=== PATIENT | female | born 1975 | race Caucasian/White ===

== ENCOUNTER 2024-03-08 08:00 | Outpatient (RCR) | payer BC, OTHER, SELFPAY ==
--- NOTE | 2023-12-17 12:02 | OTOPEVAL1 ---
Assessment and note entered by Shivam Samayoa, LON/Anuj, CHT Evaluation Information Assessment Status Evaluation Diagnosis Pain in right hand Subjective Information Patient has a history of chronic pain in the right wrist/thumb. She has had therapy in the past and has a long thumb spica splint that she wears at night when she has flair ups . She received a cortisone injection to the 1st dorsal compartment 3 weeks ago. She reports she has been feeling better since the injection. She reports her hand feels very weak. She states she is unable to open a jar or a water bottle with the right hand. She has not been able to push a grocery cart or carry groceries into her house. Reported Pain Level Pain Score 0: Self Report Additional Pain Score Comments Pain increases to 2/10 with active ROM. Assessment OT Clinical Summary Patient referred to OT with right wrist pain. She was actually a patient here ~8 years ago with the same complaints. She has modified a lot of her life around not using this hand/wrist and does a lot with her left hand now. She recently started a new job and the pain flared up to a point she could no longer manage. She received a cortisone injection ~3 weeks ago and this has helped. She presents today very guarded with wrist and thumb motion. She avoids using this hand. Skilled OT indicated for splinting, modalities, manual therapy, and HEP instruction to facilitate reduced pain and improved functional strength of the right UE. Plan of Care Interventions Therapeutic Exercise,Manual Therapy,Therapeutic Activities,Hot Pack/Cold Pack,Check Out for Orthotic/Pr,Ultrasound,Paraffin OT Services Indicated Yes Treatment Frequency and 1x/week for 6 visits Duration These treatments will address the objective and functional deficits as defined above. The patient will be advanced safely and appropriately in order for the patient to progress towards his/her prior level of function. Additional exercises will be introduced and as well as a comprehensive home exercise program upon discharge, if needed, ?to ensure carryover of functional gains achieved in the clinic. This treatment plan has been reviewed and agreement upon by the patient.
--- NOTE | 2024-02-28 12:09 | OTOPPROG ---
Assessment and note entered by Shivam Samayoa, LON/Anuj, CHT Evaluation Information Assessment Status Progress Diagnosis Pain in right hand Subjective Information Patient reports her pain increased after the cortisone injection wore off, but overall therapy has brought her pain back down. Reports regular wrist pain at 2/10. She continues to report being unable to open a jar or a water bottle with the right hand. She has not been able to push a grocery cart or carry groceries into her house. She reports she continues to be very guarded with using the right UE, if she does too much she will be off work for a week due to the pain . Assessment OT Clinical Summary Patient referred to OT with right wrist pain. She was actually a patient here ~8 years ago with the same complaints. She has modified a lot of her life around not using this hand/wrist and does a lot with her left hand now. She continues to be extremely guarded with right hand use due to expecting increased pain. She presents today with improved flexibility of the wrist. She was able to tolerate some light strengthening today also. Continued skilled OT indicated for progressive strengthening, splinting, modalities, manual therapy, and HEP instruction to facilitate reduced pain and improved functional strength of the right UE. Plan of Care Interventions Therapeutic Exercise,Manual Therapy,Therapeutic Activities,Hot Pack/Cold Pack,Check Out for Orthotic/Pr,Ultrasound,Paraffin OT Services Indicated Yes Treatment Frequency and 1-2x/week for 8 visits Duration These treatments will address the objective and functional deficits as defined above. The patient will be advanced safely and appropriately in order for the patient to progress towards his/her prior level of function. Additional exercises will be introduced and as well as a comprehensive home exercise program upon discharge, if needed, ?to ensure carryover of functional gains achieved in the clinic. This treatment plan has been reviewed and agreement upon by the patient.
--- NOTE | 2024-02-28 12:09 | OPREHPOC ---
Outpatient Therapy Plan of Care This is a Multidisciplinary Plan of Care that may contain components documented by all disciplines (PT, OT, and ST.) OT Problem 1 OT Problem #1 Knowledge Deficit OT Goal 1 Goal 1. Patient to be independent with instructed materials. ---OT POC UPDATE 02/28/24--- 1. Met, continue as HEP is progressed Target Visit 15 OT Problem 2 OT Problem #2 Pain OT Goal 1 Goal 1. Patient to report no pain with wrist/thumb ROM through full ROM. ---OT POC UPDATE 02/28/24--- 1. Not met, continue Target Visit 15 OT Problem 3 OT Problem #3 Impaired Strength OT Goal 1 Goal 1. Patient to be able to complete wrist strengthening with 1 lb. free weight in all planes x10 reps. ---OT POC UPDATE 02/28/24--- 1. Completes flexion/extension, unable to complete RD; Continue Target Visit 15
--- NOTE | 2024-03-03 08:23 | PCOTNOTE ---
Patient called & cancelled scheduled appointment this date due to getting called into work.
== END 2024-03-14 11:07 | disposition home or self-care (01) ==
LOC: ANHOT 08:00
PROVIDERS: PCP Physician Assistant Medical
DX: M79.641 Pain in right hand (principal)
CPT/HCPCS: 97018; 97035; 97110; 97165

== ENCOUNTER 2024-03-23 07:30 | Outpatient (RCR) | payer OTHER, SELFPAY ==
--- NOTE | 2024-01-26 16:29 | OPREHPOC ---
Outpatient Therapy Plan of Care This is a Multidisciplinary Plan of Care that may contain components documented by all disciplines (PT, OT, and ST.) PT Problem 1 PT Problem #1 Knowledge Deficit PT Goal 1 Goal *indep with HEP PT Problem 2 PT Problem #2 Pain PT Goal 1 Goal 1* pt report pain at worst rating of 1/10 2* pt report able to walk into her office at work without pain increase 3* pt report up/down stairs without an increase in pain 4* self assessment LE functional scale rating of 25% limitation in activity PT Problem 3 PT Problem #3 Impaired Strength PT Goal 1 Goal increase strength of R hip and knee, to improve stability to knee joint and improve mobility 1* single leg standing x 30 seconds with good stability 2* 20 reps of mat and standing strengthening exercises
--- NOTE | 2024-01-26 16:29 | PTOPEVAL1 ---
Assessment and note entered by Niecy Lo, PT Evaluation Information Assessment Status Evaluation Diagnosis R knee pain Onset about one month ago Subjective Information gradual increase in knee pain, no injury or trauma to leg; started new job at [employer] and walking more on hills to get to office; having more issues with irritable bowel--loss of weight, and muscle mass, not as active; played tennis in the past and very active, but this is her first incident of knee pain; have not had imaging of knee; knee swelling and pain have decreased, but resting and not doing much; Activity: due to pain, avoids stairs; is paying to park closer to her office to avoid walking on the hills and 5 minute distance; Reported Pain Level Pain Score Self Report Additional Pain Score Comments pain range in the past week 0-3/10; medial knee joint line; swelling more over lateral knee; increase pain: walk uneven surface, stairs, decrease pain: rest, ice not able to take meds due to stomach issues sleeping is OK; walking on flat surface is OK- better than was but still knee feels unstable; Assessment PT Clinical Summary Ann has the diagnosis of R knee pain. She reports gradual onset of pain with increased walking of distance and hills to reach her office at [facility]. The pain is less and still have some swelling. Self assessment with LE functional scale of 54% limitation in activity. With the evaluation: R knee ROM is WNL and does not report pain with active motion or palpation over knee; testing negative for meniscus tear; decreased strength of hips and knees bilateral. Skilled PT services are indicated to increase LE strength and stabilization to knee; modalities PRN for pain and edema, with education for HEP. Plan of Care Interventions Electrical Stimulation,Hot Pack/Cold Pack, Intermittent Compression,Manual Therapy,Neuro Re- education,Patient Education,Therapeutic Activities,Therapeutic Exercise,Ultrasound,Other Other Interventions taping
--- NOTE | 2024-03-22 08:27 | PCPTNOTE ---
Mrs. Link contacted the clinic this morning stating that she was stuck in traffic and would be unable to make her scheduled appointment. She reschudled her appointment for this week. Cale Palma, MPT
--- NOTE | 2024-03-23 08:33 | PTOPDC ---
Assessment and note entered by Cale Palma Evaluation Information Assessment Status Discharge Diagnosis R knee pain Onset about one month ago Subjective Information Pt. reports that she was doing well, but recently went to [employer] and re-aggravated the knee after doing a large amount of steps. She continues to describe her pain on the inside of the right knee. She states that she is comfortable on level surfaces, but notices pain with inclines and steps. She reports she will attempt to be more compliant with her HEP and continue to address pain through exercise. Reported Pain Level Pain Score 1: Self Report Assessment PT Clinical Summary Pt. continues to provide reports of mild pain. She does demonstrate significant improvement in regards to strength, ROM, gait mechanics and LEFS scoring despite pain. At this time encourage the pt. to continue with her HEP and she will be discharged from our care. Plan of Care PT Services Indicated No
== END 2024-03-23 09:06 | disposition home or self-care (01) ==
LOC: ANHPT 07:30
PROVIDERS: PCP Physician Assistant Medical; Visit Provider Physician Assistant Medical
DX: M25.561 Pain in right knee (principal)
CPT/HCPCS: 97110; 97161; 97530

== ENCOUNTER 2024-06-05 11:15 | Outpatient (RCR) | payer OTHER, SELFPAY ==
--- NOTE | 2024-04-06 11:59 | OTOPPROG ---
Assessment and note entered by Shivam Samayoa, LON/Anuj, CHT Progress Update 04/06/24 Assessment Status Progress Diagnosis (R) de Quervain's tenosynovitis Subjective Information Patient reports she has noticed progress in the right wrist over the past month. She reports experiencing less pain and inflammation, which has allowed her to be able to use her right hand more normally. She reports she has been able to type without compensating. She continues to report being unable to open a jar or a water bottle with the right hand. She has not been able to push a grocery cart or carry groceries into her house. She reports she continues to be very guarded with using the right UE, if she does too much she will be off work for a week due to the pain. Assessment OT Clinical Summary Patient referred to OT with right wrist pain dx with de Quervain's tenosynovitis. She presents today for therapy re-eval. She demonstrates improvements with reduced pain and improved flexibility. We have been able to complete some light strengthening also. Overall she continues to demonstrate severe weakness and is very limited with functional use due to pain and fear of pain if she over does it . She continues to be extremely guarded with right hand use due to expecting increased pain. Continued skilled OT indicated for progressive strengthening, splinting , modalities, manual therapy, and HEP instruction to facilitate reduced pain and improved functional strength of the right UE. Plan of Care Interventions Therapeutic Exercise,Check Out for Orthotic/Pr, Ultrasound,Paraffin,Manual Therapy,Therapeutic Activities,Hot Pack/Cold Pack OT Services Indicated Yes Treatment Frequency and 1x/week for 6 visits Duration These treatments will address the objective and functional deficits as defined above. The patient will be advanced safely and appropriately in order for the patient to progress towards his/her prior level of function. Additional exercises will be introduced and as well as a comprehensive home exercise program upon discharge, if needed, ?to ensure carryover of functional gains achieved in the clinic. This treatment plan has been reviewed and agreement upon by the patient.
--- NOTE | 2024-04-06 11:59 | OPREHPOC ---
Outpatient Therapy Plan of Care This is a Multidisciplinary Plan of Care that may contain components documented by all disciplines (PT, OT, and ST.) OT Problem 1 OT Problem #1 Knowledge Deficit OT Goal 1 Goal 1. Patient to be independent with instructed materials. ---OT POC UPDATE 02/28/24--- 1. Met, continue as HEP is progressed ---OT POC UPDATE 04/06/24--- 1. Met Target Visit 18 OT Problem 2 OT Problem #2 Pain OT Goal 1 Goal 1. Patient to report no pain with wrist/thumb ROM through full ROM. ---OT POC UPDATE 02/28/24--- 1. Not met, continue ---OT POC UPDATE 04/06/24--- 1. Patient reporting no pain, just tightness with ROM today, continue to treat pain and inflammation Target Visit 18 OT Problem 3 OT Problem #3 Impaired Strength OT Goal 1 Goal 1. Patient to be able to complete wrist strengthening with 1 lb. free weight in all planes x10 reps. ---OT POC UPDATE 02/28/24--- 1. Completes flexion/extension, unable to complete RD; Continue ---OT POC UPDATE 04/06/24--- 1. Progressing, continue NEW GOAL 2. Patient to increase right hand scudder strength to 43 lbs. Target Visit 18
--- NOTE | 2024-06-05 12:03 | OTOPPROG ---
Assessment and note entered by Shivam Samayoa, OTR/L, CHT Evaluation Information Assessment Status Progress Diagnosis (R) de Quervain's tenosynovitis Subjective Information Patient reports she is slowly getting back into cooking and dishes, but continues to be guarded and careful with movement during these tasks. She reports some residual soreness from cooking last night. She was able to open a bottle of water with the right hand. She feels as though therapy helps keep her pain and inflammation low enough to where she can use her hand for light tasks. She states she can tell when there has been a gap between her therapy sessions. She continues to feel like if she does too much with her hand/wrist she will be unable to use the hand for a few days due to the pain. Assessment OT Clinical Summary Patient referred to OT with right wrist pain dx with de Quervain's tenosynovitis. She presents today for therapy re-eval. She demonstrates improvements with reduced pain, improved flexibility, and improved strength. She has been able to use her hand for more functional ADL tasks . Overall she continues to demonstrate severe weakness and is very limited with functional use due to pain and fear of pain if she over does it . She continues to be extremely guarded with right hand use due to expecting increased pain. Continued skilled OT indicated for progressive strengthening, splinting, modalities, manual therapy, and HEP instruction to facilitate reduced pain and improved functional strength of the right UE. Plan of Care Interventions Therapeutic Exercise,Check Out for Orthotic/Pr, Ultrasound,Paraffin,Manual Therapy,Therapeutic Activities,Hot Pack/Cold Pack OT Services Indicated Yes Treatment Frequency and 1x/week for 4 visits Duration These treatments will address the objective and functional deficits as defined above. The patient will be advanced safely and appropriately in order for the patient to progress towards his/her prior level of function. Additional exercises will be introduced and as well as a comprehensive home exercise program upon discharge, if needed, ?to ensure carryover of functional gains achieved in the clinic. This treatment plan has been reviewed and agreement upon by the patient.
--- NOTE | 2024-06-05 12:04 | OPREHPOC ---
Outpatient Therapy Plan of Care This is a Multidisciplinary Plan of Care that may contain components documented by all disciplines (PT, OT, and ST.) OT Problem 1 OT Problem #1 Knowledge Deficit OT Goal 1 Goal 1. Patient to be independent with instructed materials. ---OT POC UPDATE 02/28/24--- 1. Met, continue as HEP is progressed ---OT POC UPDATE 04/06/24--- 1. Met ---OT POC UPDATE 06/05/24--- 1. Met, continue as HEP is progressed Target Visit 22 OT Problem 2 OT Problem #2 Pain OT Goal 1 Goal 1. Patient to report no pain with wrist/thumb ROM through full ROM. ---OT POC UPDATE 02/28/24--- 1. Not met, continue ---OT POC UPDATE 04/06/24--- 1. Patient reporting no pain, just tightness with ROM today, continue to treat pain and inflammation ---OT POC UPDATE 06/05/24--- 1. No pain, just tightness with ROM today, UPGRADE : Patient to report no pain with opening water bottles and doing the dishes. Target Visit 22 OT Problem 3 OT Problem #3 Impaired Strength OT Goal 1 Goal 1. Patient to be able to complete wrist strengthening with 1 lb. free weight in all planes x10 reps. ---OT POC UPDATE 02/28/24--- 1. Completes flexion/extension, unable to complete RD; Continue ---OT POC UPDATE 04/06/24--- 1. Progressing, continue NEW GOAL 2. 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 ---OT POC UPDATE 06/05/24--- 1. Not met, continue 2. Progressing, not met, continue Target Visit 22
== END 2024-06-12 14:02 | disposition home or self-care (01) ==
LOC: ANHOT 11:15
PROVIDERS: PCP Physician Assistant Medical; Visit Provider Plastic Surgery
DX: M79.641 Pain in right hand (principal)
CPT/HCPCS: 97018; 97035; 97110

== ENCOUNTER 2024-09-11 11:15 | Outpatient (RCR) | payer OTHER, SELFPAY ==
--- NOTE | 2024-06-20 11:21 | PCOTNOTE ---
The treatment documented on this account is a continuation of the treatment documented on visit number [id number]. Please see documentation on both accounts to view progress. The Plan of Care has been transitioned and updated within the new V#. I have addressed and agree with the discipline specific Problems, Interventions, and Goals for the current certification period. Completed interventions, outcomes, and problems have been marked as Inactive to facilitate the copying of the Care plan routine for recurring accounts.
--- NOTE | 2024-07-17 12:06 | OTOPPROG ---
Assessment and note entered by Shivam Samayoa, OTR/Anuj, CHT OT Progress Update 07/17/24 Assessment Status Progress Diagnosis (R) de Quervain's tenosynovitis Subjective Information Patient reports she is slowly incorporating her right hand into more tasks and has been trying to be less guarded with use. She has been using her right hand to open water and juice bottles. She continues to experience wrist soreness after certain tasks, such as cooking. She reports that she is relying less on therapy to keep her pain and inflammation down and that she is getting longer relief between therapy sessions. Assessment OT Clinical Summary Patient referred to OT with right wrist pain dx with de Quervain's tenosynovitis. She presents today for therapy re-eval. She demonstrates improvements with reduced pain, improved flexibility, and improved strength. She has been able to use her hand for more functional ADL tasks . Overall she continues to demonstrate severe weakness and is very limited with functional use due to pain and fear of pain if she over does it . She is making progress with being less guarded and using her hand for more tasks. She is also finding more relief between sessions and we are going to schedule therapy every other week now to taper down. Continued skilled OT indicated for progressive strengthening, splinting, modalities, manual therapy, and HEP instruction to facilitate reduced pain and improved functional strength of the right UE. Plan of Care Interventions Therapeutic Exercise,Check Out for Orthotic/Pr, Ultrasound,Paraffin,Manual Therapy,Therapeutic Activities,Hot Pack/Cold Pack OT Services Indicated Yes Treatment Frequency and 1x/week for 4 visits Duration Scheduling every other week These treatments will address the objective and functional deficits as defined above. The patient will be advanced safely and appropriately in order for the patient to progress towards his/her prior level of function. Additional exercises will be introduced and as well as a comprehensive home exercise program upon discharge, if needed, ?to ensure carryover of functional gains achieved in the clinic. This treatment plan has been reviewed and agreement upon by the patient.
--- NOTE | 2024-07-17 12:06 | OPREHPOC ---
Outpatient Therapy Plan of Care This is a Multidisciplinary Plan of Care that may contain components documented by all disciplines (PT, OT, and ST.) OT Problem 1 OT Problem #1 Knowledge Deficit OT Goal 1 Goal / Goal Update 1. Patient to be independent with instructed materials. ---OT POC UPDATE 02/28/24--- 1. Met, continue as HEP is progressed ---OT POC UPDATE 04/06/24--- 1. Met ---OT POC UPDATE 06/05/24--- 1. Met, continue as HEP is progressed ---OT POC UPDATE 07/17/24--- 1. Met, continue as HEP is progressed Target Visit 25 OT Problem 2 OT Problem #2 Pain OT Goal 1 Goal / Goal Update 1. Patient to report no pain with wrist/thumb ROM through full ROM. ---OT POC UPDATE 02/28/24--- 1. Not met, continue ---OT POC UPDATE 04/06/24--- 1. Patient reporting no pain, just tightness with ROM today, continue to treat pain and inflammation ---OT POC UPDATE 06/05/24--- 1. No pain, just tightness with ROM today, UPGRADE : Patient to report no pain with opening water bottles and doing the dishes. ---OT POC UPDATE 07/17/24--- 1. Progressing, continue to treat and address pain Target Visit 25 OT Problem 3 OT Problem #3 Impaired Strength OT Goal 1 Goal / Goal Update 1. Patient to be able to complete wrist strengthening with 1 lb. free weight in all planes x10 reps. ---OT POC UPDATE 02/28/24--- 1. Completes flexion/extension, unable to complete RD; Continue ---OT POC UPDATE 04/06/24--- 1. Progressing, continue NEW GOAL 2. 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 ---OT POC UPDATE 06/05/24--- 1. Not met, continue 2. Progressing, not met, continue ---OT POC UPDATE 07/17/24--- 1. Progressing, continue 2. Prog
--- NOTE | 2024-09-11 12:01 | OTOPDC ---
Assessment and note entered by Shivam Samayoa, LON/Anuj, CHT OT Discharge Notification 09/11/24 Assessment Status Discharge Diagnosis (R) de Quervain's tenosynovitis Subjective Information Patient reports she is slowly incorporating her right hand into more tasks and has been trying to be less guarded with use. She has been using her right hand to open water and juice bottles. She continues to experience wrist soreness after certain tasks, such as cooking. She does state that she continues to live with restrictions - she is always very cognizant of her wrist, dancing around using it for particular tasks. She reports that she is keeping up with 1 lb. strengthening with the wrist and working with putty. Assessment OT Clinical Summary Patient referred to OT with right wrist pain dx with de Quervain's tenosynovitis. She presents today for therapy re-eval. She has attended 23 sessions since her initial evaluation on 12/17/23. She has progressed to a maintenance level - being able to complete her HEP without pain and has her non-medication pain management techniques. She continues to be very restricted on how much she uses her right arm to restrict sharp increases of pain. At this time we are discharging with the patient independent with all materials. Plan of Care OT Services Indicated No
== END 2024-09-11 14:31 | disposition home or self-care (01) ==
LOC: ANHOT 11:15
PROVIDERS: PCP Physician Assistant Medical; Visit Provider Plastic Surgery
DX: M79.641 Pain in right hand (principal)
CPT/HCPCS: 97018; 97035; 97110; 97140